=== PATIENT | female | born 1955 | race Caucasian/White ===

== ENCOUNTER 2018-07-08 10:47 | Outpatient (CLI) | payer BC ==
--- NOTE | 2018-07-08 14:28 | RAD ---
BIPHASIC ESOPHAGRAM: 07/08/18 HISTORY: 62-year-old female with dysphagia. FINDINGS: Swallowing was grossly normal. There is a obstructed flow of contrast through the esophagus into the stomach. Tertiary contractions are present. No ulcer, stricture, mass, or diverticulum is seen. A sma ll hiatal hernia is present. No GE reflux was demonstrated either spontaneously or during the Valsalv a maneuver. IMPRESSION: 1. Presbyesophagus. 2. Small hiatal hernia. POS: OPAL
== END 2018-07-08 10:48 | disposition home or self-care (01) ==
LOC: RAD 10:47
PROVIDERS: ATTEND Internal Medicine
DX: R13.10 Dysphagia, unspecified (principal); K22.8 Other specified diseases of esophagus; K44.9 Diaphragmatic hernia without obstruction or gangrene
CPT/HCPCS: 74220

== ENCOUNTER 2018-08-08 07:54 | Outpatient (CLI) | payer BC ==
--- NOTE | 2018-08-12 13:24 | MMO ---
Bilateral MAMMO Bilat Screen [facility]. CLINICAL HISTORY: Patient is 62 years old and is seen for screening. The patient has no family history of breast cancer. The patient has no personal history of cancer. VIEWS: The views performed were: bilateral craniocaudal with tomosynthesis and bilateral mediolateral oblique with tomosynthesis. FILMS COMPARED: The present examination has been compared to prior imaging studies performed at [facility] on 07/30/1998, 09/02/2003, 11/16/2004, 01/10/2006, 02/20/2007, 01/24/2012, 03/31/2013 and 04/27/2015, and at [facility] [place] on 05/23/2001 and 03/01/2009. MAMMOGRAM FINDINGS: There are scattered fibroglandular densities. There are stable intramammary lymph nodes seen in both breasts. There are no suspicious masses, suspicious calcifications, or new areas of architectural distortion. IMPRESSION: THERE IS NO MAMMOGRAPHIC EVIDENCE OF MALIGNANCY. A ROUTINE FOLLOW-UP MAMMOGRAM IN 1 YEAR IS RECOMMENDED. THE RESULTS OF THIS EXAM WERE SENT TO THE PATIENT. ACR BI-RADS Category 2 - Benign finding MAMMOGRAPHY NOTE: 1. A negative mammogram report should not delay a biopsy if a dominant of clinically suspicious mass is present. 2. Approximately 10% to 15% of breast cancers are not detected by mammography. 3. Adenosis and dense breasts may obscure an underlying neoplasm.
== END 2018-08-08 07:55 | disposition home or self-care (01) ==
LOC: BICMAMMO 07:54
PROVIDERS: ATTEND Internal Medicine
DX: Z12.31 Encounter for screening mammogram for malignant neoplasm of breast (principal)
CPT/HCPCS: 77063; 77067

== ENCOUNTER 2019-02-20 11:43 | Day surgery (SDC) | payer BC ==
[2019-02-19 16:08] VITALS: BMI 27.2
[~2019-02-20 11:43] MED LIST: PROPOFOL 200 MG/20 ML VIAL ONE
[2019-02-20] MEDS ORDERED: Ondansetron PF 4 MG/2 ML Vial ONE (13:41)
--- NOTE | 2019-02-20 18:37 | OP ---
DATE OF PROCEDURE: 02/20/2019 PROCEDURE PERFORMED: Colonoscopy. PREPROCEDURE DIAGNOSES: 1. Average risk colon screening. 2. Incidental history of constipation. POSTPROCEDURE DIAGNOSES: 1. Exam to the ileocecal valve; good bowel preparation. 2. Diffusely redundant colon. 3. Unable to carefully examine the cecum due to redundant colon. 4. No polyp or neoplasm identified. 5. Small internal hemorrhoids. 6. Otherwise normal colonoscopy. DESCRIPTION OF PROCEDURE: Written informed consent was obtained. Upon completion of the EGD, the patient was repositioned for the colonoscopy. Total intravenous anesthesia was administered by Mr. Wayne Garcia CRNA. A digital rectal exam was performed that was unremarkable. A Pentax videocolonoscope was inserted through the anal canal and advanced under direct visualization to the ileocecal valve. At this level, the colonoscope could not be advanced into the cecum in a safe manner due to the extreme redundancy of her colon. Abdominal pressure and body position changes were used to facilitate intubation of the cecum without success. The colonoscope was then slowly withdrawn as each colon segment was carefully examined. Vascular pattern and haustral folds appeared normal. No polyp or diverticulum was identified. There were no vascular ectasias. In the rectum, a retroflexed view demonstrated small internal hemorrhoids and a hypertrophied anal papilla. The colon was decompressed as the colonoscope was removed from the patient. She was transferred to the Day Stay Surgery area for postprocedure monitoring. There were no immediate complications. RECOMMENDATIONS: 1. High-fiber, low-fat diet. 2. MiraLAX 17 g dissolved in 8 ounces of water daily as needed for constipation. 3. Resume previous medications. 4. Repeat colonoscopy in 9 to 10 years. 5. Follow up in GI Clinic as per my EGD report. Job ID: [id number]
--- NOTE | 2019-02-20 20:56 | OP ---
DATE OF PROCEDURE: 02/20/2019 PROCEDURE PERFORMED: Esophagogastroduodenoscopy with Melgoza dilation and biopsy. PREPROCEDURE DIAGNOSES: 1. Intractable reflux despite therapy. 2. Choking. 3. Solid-food dysphagia. POSTPROCEDURE DIAGNOSES: 1. Exam to 2nd portion of duodenum. 2. Normal exam for dysphagia, dilated carefully with a 54-Icelandic Melgoza bougie. 3. Biopsies obtained in the lower esophagus to evaluate for microscopic changes. 4. No esophageal ulcer. 5. Multiple small sessile gastric body polyps, several biopsied. 6. No gastric or duodenal ulcers. 7. Normal duodenum. PROCEDURE IN DETAIL: Written informed consent was obtained. The patient was brought to the endoscopy suite. Total intravenous anesthesia was administered by Mr. Wayne Garcia CRNA. The patient was placed in the left lateral decubitus position. A bite block was inserted into the mouth. A Pentax video diagnostic gastroscope was introduced into the oral cavity and the esophagus was carefully intubated. The gastroscope was advanced under direct visualization to the 2nd portion of the duodenum. Endoscopic findings revealed a grossly normal appearing esophagus without active erosive esophagitis, ulcer, or stricture. After the dilation, biopsies were obtained in the lower esophagus for histopathology. For the esophageal dilation, a 54-Icelandic Melgoza dilator was used to gently dilate the esophagus. Post dilation, the endoscope was reintroduced and exam revealed no evidence of bleeding, tear, or perforation. The esophageal lumen did appear more patent. The stomach was then carefully examined. This included a retroflexed view of the cardia and fundus. Multiple small sessile polyps were scattered throughout the gastric body. Their benign appearance was most consistent with benign gastric fundic polyps. Biopsies of several polyps were obtained for histology. No ulcers were identified. The duodenum from the bulb to the 2nd portion was then inspected and appeared grossly normal. The stomach was completely decompressed as the endoscope was removed from the patient. She was then repositioned for the colonoscopy. RECOMMENDATIONS: 1. Await biopsy results. 2. Ask the patient to call me in 1 week for biopsy results. 3. Discontinue Protonix and ranitidine. 4. Initiate Dexilant 60 mg daily for the next 8 weeks. 5. Follow up in GI clinic in 4-6 weeks. 6. Resume other previous medications. 7. Low-fat diet. Job ID: [id number]
== END 2019-02-20 16:15 | disposition home or self-care (01) ==
LOC: SDC 11:43
PROVIDERS: ATTEND Internal Medicine Gastroenterology
PROC: 0D757ZZ Dilation of Esophagus, Via Natural or Artificial Opening (ICD-10-PCS; principal; 2019-02-20)
PROC: 0DB68ZX Excision of Stomach, Via Natural or Artificial Opening Endoscopic, Diagnostic (ICD-10-PCS; principal; 2019-02-20)
PROC: 0DB38ZX Excision of Lower Esophagus, Via Natural or Artificial Opening Endoscopic, Diagnostic (ICD-10-PCS; principal; 2019-02-20)
PROC: 0DJD8ZZ Inspection of Lower Intestinal Tract, Via Natural or Artificial Opening Endoscopic (ICD-10-PCS; principal; 2019-02-20)
DX: Z12.11 Encounter for screening for malignant neoplasm of colon (principal); K21.0 Gastro-esophageal reflux disease with esophagitis; K31.7 Polyp of stomach and duodenum; K59.00 Constipation, unspecified; K64.8 Other hemorrhoids; R13.10 Dysphagia, unspecified; Q43.8 Other specified congenital malformations of intestine; Z79.82 Long term (current) use of aspirin; Z79.899 Other long term (current) drug therapy
CPT/HCPCS: 88305; 88312; 88313; J2405; J2704

== ENCOUNTER 2021-01-27 11:13 | Emergency (ER) | payer BC ==
[2021-01-27 12:18] LABS: #Basophils 0.1 thou/uL (0.0-0.2); #Eosinphils 0.1 thou/uL (0.0-0.7); #Lymphocytes 1.7 thou/uL (1.20-3.40); #Monocytes 0.7 thou/uL (0.11-0.59); #Neutrophils 5.3 thou/uL (1.40-6.50); %Basophils 0.7 % (0.0-1.0); %Eosinophils 1.2 % (0.0-10.0); %Lymphocytes 21.7 % (21.0-51.0); %Monocytes 8.8 % (0.0-10.0); %Neutrophils 67.7 % (42.0-75.0); Hemoglobin 14.4 g/dL (12.0-16.0); Mean Corpuscular HGB CONC 33.5 g/dL (32.0-36.0); Mean Corpuscular Hemoglobin 31.5 pg (27.0-31.0); Mean Corpuscular Volume 94.2 fL (78.0-98.0); Mean Platelet Volume 8.3 fL (7.4-10.4); Platelet Count 244 thou/uL (130-400); RBC Distribution Width 13.1 % (11.5-14.5); Red Blood Cell (RBC) Count 4.57 mill/uL (4.20-5.40); White Blood Cell (WBC) Count 7.8 thou/uL (4.8-10.8)
[2021-01-27 13:28] LABS: ALT (SGPT) Less than 35 U/L (8-55); AST (SGOT) 19 U/L (5-34); Albumin 3.9 g/dL (3.4-4.8); Alkaline Phosphatase 100 U/L (40-110); Anion Gap 13 mmol/L (10-20); BUN (Urea Nitrogen) 10 mg/dL (9.8-20.1); Bilirubin, Total 0.4 mg/dL (0.2-1.2); Calc. Creatinine Clearance 0 mL/min (70-130); Calcium 9.1 mg/dL (7.8-10.44); Carbon Dioxide 24 mmol/L (23-31); Chloride 104 mmol/L (98-107); Glucose 102 mg/dL (80-115); Protein, Total 6.9 g/dL (5.8-8.1); Sodium 136 mmol/L (136-145)
== END 2021-01-27 14:22 | disposition home or self-care (01) ==
LOC: ERS 11:13
DX: R55 Syncope and collapse (principal)
CPT/HCPCS: 36415; 80053; 84484; 85025; 93005

== ENCOUNTER 2021-06-27 16:34 | Inpatient (IN) | payer MEDICARE, OTHER ==
[2021-06-27 16:51] LABS: #Eosinphils 0.2 thou/uL (0.0-0.7); #Monocytes 0.4 thou/uL (0.11-0.59); #Neutrophils 3.6 thou/uL (1.40-6.50); %Basophils 0.5 % (0.0-1.0); %Eosinophils 2.5 % (0.0-10.0); %Lymphocytes 32.4 % (21.0-51.0); %Monocytes 6.4 % (0.0-10.0); %Neutrophils 58.3 % (42.0-75.0); Hemoglobin 14.1 g/dL (12.0-16.0); Mean Corpuscular HGB CONC 34.4 g/dL (32.0-36.0); Mean Corpuscular Hemoglobin 32.2 pg (27.0-31.0); Mean Corpuscular Volume 93.7 fL (78.0-98.0); Mean Platelet Volume 7.4 fL (7.4-10.4); Platelet Count 284 thou/uL (130-400); RBC Distribution Width 12.3 % (11.5-14.5); Red Blood Cell (RBC) Count 4.39 mill/uL (4.20-5.40); White Blood Cell (WBC) Count 6.2 thou/uL (4.8-10.8)
[2021-06-27 17:04] LABS: PTT 35.8 sec (22.9-36.1); Prothrombin Time 13.7 sec (12.0-14.7)
[2021-06-27 17:11] LABS: ALT (SGPT) 14 U/L (8-55); AST (SGOT) 16 U/L (5-34); Alkaline Phosphatase 104 U/L (40-110); Anion Gap 11 mmol/L (10-20); BUN (Urea Nitrogen) 12 mg/dL (9.8-20.1); Bilirubin, Total 0.3 mg/dL (0.2-1.2); CK (CPK) 81 U/L (29-168); Calc. Creatinine Clearance 0 mL/min (70-130); Calcium 8.7 mg/dL (7.8-10.44); Carbon Dioxide 23 mmol/L (23-31); Chloride 101 mmol/L (98-107); Glucose 139 mg/dL (80-115); Potassium 3.8 mmol/L (3.5-5.1); Sodium 131 mmol/L (136-145)
[2021-06-27] MEDS ORDERED: Aspirin 325 MG TAB ONE (17:18)
[2021-06-27 18:27] LABS: Bilirubin Negative (Negative); Blood, Urine Negative (Negative); Clarity Clear (Clear); Glucose, Urine (Dipstick) Normal (Negative); Ketone, Urine Negative (Negative); Leukocyte Negative Leu/uL (Negative); Nitrite Negative (Negative); Protein, Urine (Dipstick) Negative (Neg-Trace); Specific Gravity, Urine 1.025 (1.002-1.036); Urobilinogen Normal mg/dL (Less than 2)
[2021-06-27 20:56] LABS: Troponin I Less than 0.010 ng/mL (< 0.028)
[2021-06-27 23:57] LABS: Troponin I 0.011 ng/mL (< 0.028)
[2021-06-28 00:47] LABS: SARS-CoV-2 PCR by NAA Not Detected (NotDetected)
[2021-06-28 02:21] VITALS: BMI 31.3
[2021-06-28] MEDS ORDERED: Bisacodyl 5 MG TAB PO PRN (02:57)
[2021-06-28] MEDS ORDERED: Senokot S 8.6-50 MG TAB PO PRN (02:57)
[2021-06-28] MEDS ORDERED: Ondansetron PF 4 MG/2 ML Vial IVP PRN ×2 (02:57→11:15)
[2021-06-28] MEDS ORDERED: Melatonin 3 MG TAB PO PRN (03:01)
[2021-06-28 05:31] LABS: #Eosinphils 0.1 thou/uL (0.0-0.7); #Lymphocytes 2.1 thou/uL (1.20-3.40); #Monocytes 0.4 thou/uL (0.11-0.59); #Neutrophils 3.3 thou/uL (1.40-6.50); %Basophils 0.6 % (0.0-1.0); %Lymphocytes 35.5 % (21.0-51.0); %Monocytes 7.2 % (0.0-10.0); %Neutrophils 54.8 % (42.0-75.0); Mean Corpuscular HGB CONC 33.5 g/dL (32.0-36.0); Mean Corpuscular Hemoglobin 31.2 pg (27.0-31.0); Mean Corpuscular Volume 93.3 fL (78.0-98.0); Mean Platelet Volume 7.8 fL (7.4-10.4); Platelet Count 279 thou/uL (130-400); RBC Distribution Width 12.3 % (11.5-14.5)
[2021-06-28 05:39] LABS: Hemoglobin A1c 5.1 % (4.0-6.0)
[2021-06-28 06:02] LABS: ALT (SGPT) 11 U/L (8-55); AST (SGOT) 13 U/L (5-34); Albumin 3.8 g/dL (3.4-4.8); Alkaline Phosphatase 91 U/L (40-110); Anion Gap 13 mmol/L (10-20); BUN (Urea Nitrogen) 10 mg/dL (9.8-20.1); Bilirubin, Total 0.4 mg/dL (0.2-1.2); Calc. Creatinine Clearance 127 mL/min (70-130); Calcium 8.8 mg/dL (7.8-10.44); Carbon Dioxide 23 mmol/L (23-31); Cardiac Risk 4.8 (Less than 4.5); Chloride 105 mmol/L (98-107); Cholesterol 215 mg/dl (< 200 Desired); Globulin 2.6 g/dL (2.4-3.5); Glucose 92 mg/dL (80-115); HDL Cholesterol 45 mg/dL (>60 Neg Risk); LDL Cholesterol, Calculated 150 mg/dL; Potassium 3.7 mmol/L (3.5-5.1); Protein, Total 6.4 g/dL (5.8-8.1); Sodium 137 mmol/L (136-145); Triglycerides 98 mg/dL (Less than 150)
[2021-06-28 06:03] LABS: Troponin I Less than 0.010 ng/mL (< 0.028)
[2021-06-28 06:18] LABS: Free Thyroxine Index 1.65 (1.4-3.1); T4 5.8 ug/dL (4.87-11.72); Thyroid Stimulating Hormone 3.9392 uIU/mL (0.35-4.94)
[2021-06-28] MEDS ORDERED: hydrOXYzine 25 MG TAB PO SCH (09:00)
[2021-06-28] MEDS ORDERED: Meloxicam 7.5 MG TAB PO SCH (09:00)
[2021-06-28] MEDS ORDERED: Gabapentin 300 MG CAP PO SCH (09:00)
[2021-06-28] MEDS ORDERED: Famotidine/PF 20 mg/2ml Vial SLOW IVP SCH (09:00)
[2021-06-28] MEDS ORDERED: Promethazine HCl 25 MG SUPP PR PRN (11:15)
[2021-06-28] MEDS ORDERED: diphenhydrAMINE 50 MG/ML VIAL IVP PRN (11:15)
[2021-06-28] MEDS ORDERED: diphenhydrAMINE 50 MG/ML VIAL IM PRN (11:15)
[2021-06-28] MEDS ORDERED: HYDROcodone/Acetaminophen 5/325 mg Tablet PO PRN ×2 (11:15)
[2021-06-28] MEDS ORDERED: Bupivacaine 0.25% 10 ML VIAL EPIDURAL PRN (11:15)
[2021-06-28] MEDS ORDERED: Zolpidem Tartrate 5 MG TAB PO PRN (11:15)
[2021-06-28] MEDS ORDERED: Promethazine HCl 25 MG/ML VIAL IM PRN (11:15)
[2021-06-28] MEDS ORDERED: Naloxone HCl 0.4 mg/ml Vial IVP PRN (11:15)
[2021-06-28] MEDS ORDERED: diphenhydrAMINE 25 MG CAP PO PRN (11:15)
[2021-06-28] MEDS ORDERED: fentaNYL Citrate/PF 500 MCG, Bupivacaine 10 ML in Sodium Chloride 0.9% 80 ML EPIDURAL SCH (11:15)
[2021-06-28] MEDS ORDERED: Hydrocerin (Eucerin) Cream 120 gm Jar TOP PRN (11:15)
[2021-06-28] MEDS ORDERED: traMADol HCl 50 MG TAB PO PRN ×2 (11:15)
[2021-06-28] MEDS ORDERED: Naloxone HCl 0.4 mg/ml Vial IV PRN (11:15)
[2021-06-28 11:45] VITALS: BP 148/79; TEMP 98.8
[2021-06-28] MEDS ORDERED: Ketorolac Tromethamine 30 MG/ML VIAL IVP SCH (12:00)
[2021-06-28] MEDS ORDERED: Acetaminophen 325 MG TAB PO PRN (13:10)
[2021-06-28] MEDS ORDERED: Atorvastatin Calcium 40 MG TAB PO SCH (21:00)
[2021-06-28] MEDS ORDERED: CYCLOBENZAPRINE HCL 30 MG PO SCH (21:00)
== END 2021-06-28 15:40 | disposition home or self-care (01) | DRG 69 ==
LOC: ERS 16:34 → ERHOLD 19:54 → NEURO 06-28 02:13
PROVIDERS: ADMIT Internal Medicine; ATTEND Internal Medicine
PROC: 4A10X4Z Monitoring of Central Nervous Electrical Activity, External Approach (ICD-10-PCS; principal; 2021-06-28)
DX: G45.9 Transient cerebral ischemic attack, unspecified (principal); I10 Essential (primary) hypertension; R73.9 Hyperglycemia, unspecified; I48.0 Paroxysmal atrial fibrillation; E78.5 Hyperlipidemia, unspecified; Z20.822 Contact with and (suspected) exposure to COVID-19; Z95.0 Presence of cardiac pacemaker; Z90.710 Acquired absence of both cervix and uterus; Z79.82 Long term (current) use of aspirin; Z79.899 Other long term (current) drug therapy
CPT/HCPCS: 36415; 36416; 70450; 70496; 70498; 70551; 71045; 80053; 80061; 81003; 82550; 83036; 84436; 84443; 84479; 84484; 85025; 85610; 85730; 93005; 93306; 95816; 95819; 95957; J3010; J3490; S0028; U0003; U0005

== ENCOUNTER 2022-03-15 08:35 | Outpatient (CLI) | payer MEDICARE, OTHER ==
[2022-03-15] MEDS ORDERED: Lidocaine 1% MPF 2 ML VIAL ONE (09:00)
[2022-03-15] MEDS ORDERED: Sodium Chloride 0.9% (PF) 10 ML VIAL ONE (09:00)
[2022-03-15] MEDS ORDERED: EPINEPHrine 1 MG/ML VIAL ONE (09:00)
[2022-03-15] MEDS ORDERED: Iopamidol 300 61% 50 ML VIAL FS ONE (09:00)
== END 2022-03-15 08:36 | disposition home or self-care (01) ==
LOC: RAD 08:35
PROVIDERS: ATTEND Orthopaedic Surgery
DX: S83.241A Other tear of medial meniscus, current injury, right knee, initial encounter (principal); S83.281A Other tear of lateral meniscus, current injury, right knee, initial encounter; M94.261 Chondromalacia, right knee
CPT/HCPCS: 27369; 73580; 73701; J0171; Q9967

== ENCOUNTER 2022-06-08 14:28 | Outpatient (CLI) | payer MEDICARE, OTHER ==
[2022-06-08 15:38] LABS: #Basophils 0.1 10x3/uL (0.0-0.2); #Eosinphils 0.1 10x3/uL (0.0-0.5); #Monocytes 0.5 10x3/uL (0.0-1.1); #Neutrophils 5.1 10x3/uL (1.5-8.4); %Basophils 0.7 % (0.0-2.0); %Eosinophils 1.6 % (0.0-6.0); %Lymphocytes 28.4 % (18.0-47.0); %Monocytes 6.5 % (0.0-10.0); %Neutrophils 62.3 % (40.0-75.0); Hemoglobin 13.8 g/dL (12.0-15.5); Mean Corpuscular HGB CONC 34.1 g/dL (32.0-36.0); Mean Corpuscular Hemoglobin 31.7 pg (27.0-33.0); Mean Corpuscular Volume 93.1 fl (81.6-98.3); Mean Platelet Volume 10.5 fl (7.4-10.4); Platelet Count 251 10x3/uL (150-450); RBC Distribution Width 13.4 % (11.5-14.5); Red Blood Cell (RBC) Count 4.35 10x6/uL (3.90-5.03); White Blood Cell (WBC) Count 8.1 10x3/uL (3.5-10.5)
[2022-06-08 15:46] LABS: Anion Gap 13 mmol/L (10-20); BUN (Urea Nitrogen) 14 mg/dL (9.8-20.1); Calc. Creatinine Clearance 0 mL/min (70-130); Calcium 9.2 mg/dL (7.8-10.44); Carbon Dioxide 26 mmol/L (23-31); Chloride 107 mmol/L (98-107); Estimated GFR 78; Glucose 94 mg/dL (80-115); Potassium 4.7 mmol/L (3.5-5.1); Sodium 141 mmol/L (136-145)
== END 2022-06-08 14:29 | disposition home or self-care (01) ==
LOC: LABBT 14:28
PROVIDERS: ATTEND Orthopaedic Surgery Hand Surgery
DX: Z01.818 Encounter for other preprocedural examination (principal); M15.1 Heberden's nodes (with arthropathy); M25.841 Other specified joint disorders, right hand
CPT/HCPCS: 80048; 85025; 93005; 93010

== ENCOUNTER 2022-07-28 09:40 | Outpatient (CLI) | payer MEDICARE, OTHER ==
[2022-07-28 11:39] LABS: #Basophils 0.1 10x3/uL (0.0-0.2); #Eosinphils 0.1 10x3/uL (0.0-0.5); #Monocytes 0.8 10x3/uL (0.0-1.1); %Basophils 0.9 % (0.0-2.0); %Eosinophils 1.6 % (0.0-6.0); %Lymphocytes 27.6 % (18.0-47.0); %Neutrophils 58.6 % (40.0-75.0); Hemoglobin 13.8 g/dL (12.0-15.5); Mean Corpuscular HGB CONC 32.8 g/dL (32.0-36.0); Mean Corpuscular Volume 94.6 fl (81.6-98.3); Mean Platelet Volume 11.3 fl (7.4-10.4); Platelet Count 271 10x3/uL (150-450); RBC Distribution Width 13.5 % (11.5-14.5); Red Blood Cell (RBC) Count 4.45 10x6/uL (3.90-5.03); White Blood Cell (WBC) Count 6.9 10x3/uL (3.5-10.5)
== END 2022-07-28 09:41 | disposition home or self-care (01) ==
LOC: LABBT 09:40
PROVIDERS: ATTEND Orthopaedic Surgery Hand Surgery
DX: Z01.818 Encounter for other preprocedural examination (principal); M67.449 Ganglion, unspecified hand; M79.641 Pain in right hand
CPT/HCPCS: 85025; 93005; 93010

== ENCOUNTER 2022-07-28 10:31 | Outpatient (CLI) | payer MEDICARE, OTHER | END 2022-07-28 10:32 | disposition home or self-care (01) | LOC: BICRAD 10:31 | PROVIDERS: ATTEND Internal Medicine Rheumatology | DX: M54.50 Low back pain, unspecified (principal); M25.541 Pain in joints of right hand; M25.542 Pain in joints of left hand; E55.9 Vitamin D deficiency, unspecified; G89.4 Chronic pain syndrome; M47.816 Spondylosis without myelopathy or radiculopathy, lumbar region; M19.042 Primary osteoarthritis, left hand; M19.041 Primary osteoarthritis, right hand; Z01.818 Encounter for other preprocedural examination; M67.449 Ganglion, unspecified hand; M79.641 Pain in right hand | CPT/HCPCS: 72100; 85025; 93005 ==

== ENCOUNTER 2022-08-01 08:15 | Day surgery (SDC) | payer MEDICARE, OTHER ==
[2022-07-28 12:16] VITALS: BMI 30.4
[2022-08-01] MEDS ORDERED: FENTANYL 50 MCG/ML 1 ML VIAL ONE (11:01)
[2022-08-01] MEDS ORDERED: fentaNYL PF 100 MCG/2 ML SYRINGE ONE (11:51)
[2022-08-01] MEDS ORDERED: CEFAZOLIN 2 GM VIAL ONE (12:09)
[2022-08-01] MEDS ORDERED: Sodium Chloride 0.9% 100 ML ONE (12:09)
[2022-08-01] MEDS ORDERED: Metoclopramide HCl 10 MG/2 ML VIAL ONE (12:16)
[2022-08-01] MEDS ORDERED: Dexamethasone 20 MG/5 ML VIAL ONE (12:16)
[2022-08-01] MEDS ORDERED: PHENYLEPHRINE-NS 100 MCG/ML 10 ML SYRINGE ONE (12:16)
[2022-08-01] MEDS ORDERED: Lidocaine 1% PF 5 ML VIAL ONE (12:16)
[2022-08-01] MEDS ORDERED: PROPOFOL 200 MG/20 ML VIAL ONE (12:16)
[2022-08-01] MEDS ORDERED: Ketorolac Tromethamine 30 MG/ML VIAL ONE (12:16)
== END 2022-08-01 15:36 | disposition home or self-care (01) ==
LOC: SDC 08:15
PROVIDERS: ATTEND Orthopaedic Surgery Hand Surgery
PROC: 0RBW0ZZ Excision of Right Finger Phalangeal Joint, Open Approach (ICD-10-PCS; principal; 2022-08-01)
PROC: 0RGW04Z Fusion of Right Finger Phalangeal Joint with Internal Fixation Device, Open Approach (ICD-10-PCS; 2022-08-01)
DX: M15.1 Heberden's nodes (with arthropathy) (principal); M25.841 Other specified joint disorders, right hand; Z79.01 Long term (current) use of anticoagulants; Z79.890 Hormone replacement therapy; Z79.899 Other long term (current) drug therapy; Z95.810 Presence of automatic (implantable) cardiac defibrillator
CPT/HCPCS: 26160; 26860; 73140; 87070; 87075; 87205; C1894; J3010; 88304; J1100; J1885; J2704; J2765; J3490

== ENCOUNTER 2022-08-14 14:06 | Outpatient (CLI) | payer MEDICARE, OTHER | END 2022-08-14 14:07 | disposition home or self-care (01) | LOC: BICMAMMO 14:06 | PROVIDERS: ATTEND Internal Medicine Rheumatology | DX: Z13.820 Encounter for screening for osteoporosis (principal); E55.9 Vitamin D deficiency, unspecified; M25.541 Pain in joints of right hand; G89.4 Chronic pain syndrome; M25.542 Pain in joints of left hand | CPT/HCPCS: 77080 ==

== ENCOUNTER 2022-12-21 08:21 | Outpatient (CLI) | payer MEDICARE, OTHER ==
[2022-12-21 09:14] LABS: #Eosinphils 0.2 10x3/uL (0.0-0.5); #Monocytes 0.5 10x3/uL (0.0-1.1); #Neutrophils 3.3 10x3/uL (1.5-8.4); %Basophils 0.6 % (0.0-2.0); %Eosinophils 3.7 % (0.0-6.0); %Lymphocytes 35.9 % (18.0-47.0); %Neutrophils 51.5 % (40.0-75.0); Hemoglobin 14.4 g/dL (12.0-15.5); Mean Corpuscular HGB CONC 33.3 g/dL (32.0-36.0); Mean Corpuscular Hemoglobin 30.4 pg (27.0-33.0); Mean Corpuscular Volume 91.3 fl (81.6-98.3); Mean Platelet Volume 10.2 fl (7.4-10.4); Platelet Count 290 10x3/uL (150-450); RBC Distribution Width 13.6 % (11.5-14.5); Red Blood Cell (RBC) Count 4.73 10x6/uL (3.90-5.03); White Blood Cell (WBC) Count 6.5 10x3/uL (3.5-10.5)
[2022-12-21 09:39] LABS: Anion Gap 14 mmol/L (10-20); BUN (Urea Nitrogen) 10 mg/dL (9.8-20.1); Calc. Creatinine Clearance 0 mL/min (70-130); Carbon Dioxide 23 mmol/L (23-31); Chloride 105 mmol/L (98-107); Estimated GFR 87; Glucose 98 mg/dL (80-115); Potassium 4.6 mmol/L (3.5-5.1); Sodium 137 mmol/L (136-145)
== END 2022-12-21 08:22 | disposition home or self-care (01) ==
LOC: LABBT 08:21
PROVIDERS: ATTEND Orthopaedic Surgery Hand Surgery
DX: Z01.812 Encounter for preprocedural laboratory examination (principal); T84.84XA Pain due to internal orthopedic prosthetic devices, implants and grafts, initial encounter
CPT/HCPCS: 80048; 85025

== ENCOUNTER 2022-12-26 05:47 | Day surgery (SDC) | payer MEDICARE, OTHER ==
[2022-12-21 09:04] VITALS: BMI 30.4
[2022-12-26] MEDS ORDERED: Bupivacaine PF 0.5% 30 ML VIAL ONE (06:26)
[2022-12-26] MEDS ORDERED: Bacitracin Zinc Ointment 30 gm TUBE ONE (06:27)
[2022-12-26] MEDS ORDERED: Midazolam HCl 2 mg/2 ml Vial ONE (06:28)
[2022-12-26] MEDS ORDERED: fentaNYL PF 100 MCG/2 ML SYRINGE ONE (06:28)
[2022-12-26] MEDS ORDERED: CEFAZOLIN 2 GM VIAL ONE (06:58)
[2022-12-26] MEDS ORDERED: Sodium Chloride 0.9% 100 ML ONE (06:58)
[2022-12-26] MEDS ORDERED: Dexamethasone 20 MG/5 ML VIAL ONE (07:20)
[2022-12-26] MEDS ORDERED: PHENYLEPHRINE-NS 100 MCG/ML 10 ML SYRINGE ONE (07:20)
[2022-12-26] MEDS ORDERED: Lidocaine 1% PF 5 ML VIAL ONE (07:20)
[2022-12-26] MEDS ORDERED: PROPOFOL 200 MG/20 ML VIAL ONE (07:20)
[2022-12-26] MEDS ORDERED: Ondansetron PF 4 MG/2 ML Vial ONE (07:20)
[2022-12-26] MEDS ORDERED: Ketorolac Tromethamine 30 MG/ML VIAL ONE (08:22)
== END 2022-12-26 09:50 | disposition home or self-care (01) ==
LOC: SDC 05:47
PROVIDERS: ATTEND Orthopaedic Surgery Hand Surgery
PROC: 0PC00ZZ Extirpation of Matter from Sternum, Open Approach (ICD-10-PCS; principal; 2022-12-26)
DX: T84.84XA Pain due to internal orthopedic prosthetic devices, implants and grafts, initial encounter (principal); G43.909 Migraine, unspecified, not intractable, without status migrainosus; Y83.1 Surgical operation with implant of artificial internal device as the cause of abnormal reaction of the patient, or of later complication, without mention of misadventure at the time of the procedure
CPT/HCPCS: J1100; J1885; J2250; J2405; J2704; J3490; S0020

== ENCOUNTER 2024-12-16 09:24 | Outpatient (CLI) | payer MEDICARE, OTHER ==
[2024-12-17 05:11] LABS: Myoglobin, Serum 30.0 ng/mL (25-58)
[2024-12-19 11:14] LABS: Hemoglobin,Free - Plasma 5.8 mg/dL (0.0-4.9)
== END 2024-12-16 09:25 | disposition home or self-care (01) ==
LOC: LABBT 09:24
PROVIDERS: ATTEND Internal Medicine Cardiovascular Disease
DX: Z01.818 Encounter for other preprocedural examination (principal); I48.0 Paroxysmal atrial fibrillation
CPT/HCPCS: 83010; 83051; 83874